=== PATIENT | female | born 1995 | race Caucasian/White ===

== ENCOUNTER 2016-12-09 15:47 | Outpatient (CLI) | payer OTHER ==
--- NOTE | 2016-12-09 16:43 | DIAGNOSTIC IMAGING REPORT ---
PROCEDURE: US BREAST ULTRASOUND - LEFT INDICATION: Palpable area in retroareolar left breast. TECHNIQUE: High resolution sesay scale and color Doppler sonographic images of the left breast. COMPARISON: None. FINDINGS: Mildly heterogeneous normal parenchyma. No evidence of mass or cyst. IMPRESSION: 1. Normal left breast ultrasound. 2. Findings discussed with the patient and called to ALEXIS Rausch. RESULT CODE: 1- Negative. A. A negative report should not delay biopsy if a dominant or clinically suspicious mass is present. 10-15% of cancers are not identified by x-ray. B. A negative report may reinforce clinical impression. C. Adenosis and dense breasts may obscure an underlying neoplasm. D. False positive reports average 6-10%. E.. A yearly screening mammogram is recommended. A reminder letter will be scheduled.
== END 2016-12-09 23:00 | disposition home or self-care (01) ==
LOC: US SRH 15:47
DX: N63 Unspecified lump in breast (principal)